=== PATIENT | male | born 1990 | race Caucasian/White ===

== ENCOUNTER → 2018-06-16 11:12 | Outpatient (CLI) | payer OTHER, SELFPAY ==
--- NOTE | 2018-06-16 11:18 | DI.RAD.S_ITS ---
PROCEDURE: XR SHOULDER RT MIN 2V INDICATIONS: Pain and swelling near the AC joint. TECHNIQUE: 3 views of the shoulder were acquired. COMPARISON: None. FINDINGS: Bones: No definite fractures or dislocations, but there is slight irregularity in the cortical margin of the base of the glenoid, considered unlikely to represent a fracture but potentially posttraumatic in origin. There is also slight elevation of the clavicle in relationship to the acromion, without widening of the coracoclavicular interspace. Ligamentous injury at the a.c. joint might explain this appearance.. No suspicious bony lesions. Visualized ribs appear intact. Soft tissues: No suspicious soft tissue calcifications. IMPRESSION: Potential nondisplaced fracture at the base of the glenoid, but more likely the mild osseous irregularity present in that area is a normal anatomic variant given the mechanism of injury. Slight elevation of the clavicle at the a.c. joint, possible ligamentous injury. Depending on the clinical status followup MR shoulder scanning may be warranted which would assess for rotator cuff tear and also accurately detect nondisplaced fractures and ligament injuries. Dictated by: Regan Bauman M.D. on 06/16/2018 at 11:31 Approved by: Regan Bauman M.D. on 06/16/2018 at 11:33
== END ==
PROVIDERS: Visit Provider Physician Assistant
DX: M25.511 Pain in right shoulder (principal); M25.411 Effusion, right shoulder
CPT/HCPCS: 73030